=== PATIENT | female | born 1965 | race Two or more races ===

== ENCOUNTER 2020-08-03 05:01 | Day surgery (SDC) | payer OTHER ==
[2020-07-31 08:50] VITALS: BMI 25.4
[2020-08-03] MEDS ORDERED: oxyCODONE HCL 5 MG TABLET PO PRN (15:44)
[2020-08-03] MEDS ORDERED: ACETAMINOPHEN 325 MG TABLET (FP) PO PRN (15:44)
[2020-08-03] MEDS ORDERED: ONDANSETRON 4 MG/2 ML VIAL IVPUSH PRN (15:44)
[2020-08-03] MEDS ORDERED: LACTATED RINGERS SOLUTION 1,000 ML IV SCH (15:45)
[2020-08-03] MEDS ORDERED: MIDAZOLAM HCL 2 MG/2 ML SINGLE DOSE VIAL ONE (15:47)
[2020-08-03] MEDS ORDERED: PROPOFOL 20 ML ONE (15:47)
[2020-08-03 18:06] VITALS: PULSE 60
[2020-08-03 18:16] VITALS: BP 136/79; TEMP 97.8
== END 2020-08-03 18:16 | disposition home or self-care (01) ==
LOC: JASU-SURG 05:01
PROVIDERS: ATTEND Urology
PROC: 0TF3XZZ Fragmentation in Right Kidney Pelvis, External Approach (ICD-10-PCS; principal; 2020-08-03 14:00)
DX: N20.0 Calculus of kidney (principal)